=== PATIENT | female | born 1930 | race Two or more races ===

== ENCOUNTER 2016-10-07 22:51 | Inpatient (IN) | payer MEDICARE, BC ==
[~2016-10-07] VITALS: Ht 167.6 cm; Wt 77.6 kg
[~2016-10-07 22:51] MED LIST: COQ-10100 M1 PO; DYAZIDE 37.5-21 EACH PO; MULTI-VITAMIN1 EACH PO; OMEGA-31000 M1 PO; TOPROL XL25 MG ORAL; TURMERIC500 MG PO; VIT BCOMPLEX PO
[2016-10-07 23:09] VITALS: BP 151/68
[2016-10-07 23:40] LABS: BASOPHILS % (AUTO) 0.9 % (0.0-2.0); EOSINOPHILS % (AUTO) 1.4 % (0.0-3.0); LYMPHOCYTES % (AUTO) 34.4 % (20.0-45.0); MEAN CORPUSCULAR HEMOGLOBIN 30.4 PG (27.0-31.0); MEAN CORPUSCULAR HGB CONC 32.8 G/DL (32.0-36.0); MEAN CORPUSCULAR VOLUME 93 FL (80-99); MEAN PLATELET VOLUME 8.3 FL (6.5-10.1); MONOCYTES % (AUTO) 7.5 % (1.0-10.0); NEUTROPHILS % (AUTO) 55.8 % (45.0-75.0); PLATELET COUNT 221 K/UL (150-450); RED BLOOD COUNT 4.19 M/UL (4.20-5.40); RED CELL DISTRIBUTION WIDTH 12.8 % (11.6-14.8); WHITE BLOOD COUNT 8.3 K/UL (4.8-10.8)
[2016-10-08] VITALS (8 sets, daily range): BP systolic 123–153; BP diastolic 57–75
[2016-10-08 00:02] LABS: TROPONIN I < 0.30 ng/mL (<=0.30)
[2016-10-08 00:02] LABS: APPEARANCE,URINE CLEAR; KETONES,URINE NEGATIVE (NEGATIVE); LEUKOCYTE ESTERASE ,URINE 3+ (NEGATIVE); NITRITE,URINE NEGATIVE (NEGATIVE); PH,URINE 7 (4.5-8.0); PROTEIN,URINE 1+ (NEGATIVE); UROBILINOGEN,URINE NORMAL MG/DL (0.0-1.0)
[2016-10-08 00:05] LABS: ALANINE AMINOTRANSFERASE 22 U/L (3-33); ALBUMIN/GLOBULIN RATIO 1.4 (1.0-2.7); ANION GAP 12 (5-15); ASPARTATE AMINO TRANSFERASE 27 U/L (5-40); CALCIUM 8.9 mg/dL (8.6-10.2); CARBON DIOXIDE 27 mEQ/L (20-30); CHLORIDE 97 mEQ/L (98-107); HEMOLYSIS 58; POTASSIUM 3.6 mEQ/L (3.4-4.9); SODIUM 136 mEQ/L (135-145); TOTAL PROTEIN 6.2 g/dL (6.6-8.7)
[2016-10-08 00:16] LABS: CKMB < 1.5 ng/mL (< 3.8)
[2016-10-08 00:36] LABS: BACTERIA,URINE FEW /HPF; SQUAMOUS EPITHELIAL CELL,UR MODERATE /LPF (NONE/OCC)
[2016-10-08 00:43] LABS: PROTHROMBIN TIME 10.4 SEC (9.30-11.50)
--- NOTE | 2016-10-08 01:25 | Emergency Room Report ---
History of Present Illness General Chief Complaint: Generalized Weakness Source: Patient, EMS Present Illness HPI Is an 86-year-old female with a history of CAD with AICD. She present with chief complaint of syncope. She was at home sitting down. Her lead recreation assistant was stressing the wound on her hand. Patient said that she felt dizzy and lightheaded. Her lead recreation assistant said that she became pale and diaphoretic. She had a syncopal episode for a few seconds. Patient denies any palpitation. Said that she felt hot. EMS said blood pressure was in the 80s. They gave her IV fluid. Patient felt better now. Slight nausea. No chest pain. No other complaint. Allergies: Coded Allergies: NO KNOWN ALLERGIES (Unverified Allergy, Unknown, 10/07/16) Patient History Past Medical History: see triage record, old chart reviewed, CAD Past Surgical History: other Pertinent Family History: none Social History: Denies: smoking Last Menstrual Period: ukn Now: No Immunizations: other Reviewed Nursing Documentation: PMH: Agreed, PSxH: Agreed Nursing Documentation-PMH Past Medical History: No History, Except For Hx Cardiac Problems: Yes - Pacemaker Hx Hypertension: Yes Hx Cancer: No Hx Gastrointestinal Problems: No Hx Neurological Problems: No Review of Systems Eye: Denies: blurred vision, eye pain ENT: Denies: ear pain, nose congestion, throat swelling Respiratory: Denies: cough, shortness of breath Cardiovascular: Denies: chest pain, palpitations Gastrointestinal: Denies: abdominal pain, diarrhea, nausea, vomiting Musculoskeletal: Denies: back pain, joint pain Skin: Denies: rash Neurological: Denies: headache, numbness Endocrine: Denies: increased thirst, increased urine Hematologic/Lymphatic: Denies: easy bruising All Other Systems: negative except mentioned in HPI Physical Exam Vital Signs Date Time Temp Pulse Resp B/P Pulse Ox O2 Delivery O2 Flow Rate FiO2 10/07/16 22:42 98.2 69 20 138/84 96 Room Air vitals normal Sp02 EP Interpretation: reviewed, normal General Appearance: well appearing, no apparent distress, alert Head: normocephalic, atraumatic Eyes: bilateral eye EOMI, bilateral eye PERRL ENT: hearing grossly normal, normal pharynx Neck: full range of motion, supple, no meningismus Respiratory: chest non-tender, lungs clear, normal breath sounds Cardiovascular #1: regular rate, rhythm, no murmur Gastrointestinal: normal bowel sounds, non tender, no mass, no organomegaly, no bruit, non-distended Musculoskeletal: back normal, gait/station normal, normal range of motion Psychiatric: mood/affect normal Skin: warm/dry Medical Decision Making Diagnostic Impression: Primary Impression: Syncope Qualified Codes: R55 - Syncope and collapse ER Course Patient presents with syncope. Concerning for TIA/CVA. Concerning for arrhythmia. Patient is asymptomatic now. We'll admit for further workup. Lab Results Impression labs unremarkable EKG Diagnostic Results EKG Time: 01:46 Rate: normal Rhythm: NSR, other - Paced ST Segments: no acute changes Rhythm Strip Diag. Results Rhythm Strip Time: 01:47 EP Interpretation: yes Rate: 60 Rhythm: NSR, no PVC's, no ectopy, other - Paced Chest X-Ray Diagnostic Results Chest X-Ray Diagnostic Results : Chest X-Ray Ordered: Yes # of Views/Limited/Complete: 1 View Indication: Shortness of Breath EP Interpretation: Yes Interpretation: no consolidation, no effusion, no pneumothorax, no acute cardiopulmonary disease Impression: No acute disease Interpreting ER Provider: Electronically signed by Amari Medrano MD Last Vital Signs Date Time Temp Pulse Resp B/P Pulse Ox O2 Delivery O2 Flow Rate FiO2 10/07/16 23:09 98.2 60 23 151/68 99 Room Air Status: improved Disposition: ADMITTED INPATIENT Condition: Serious Referrals: NON PHYSICIAN (PCP) AMARI MEDRANO M.D. Oct 08, 2016 01:25
[2016-10-08] MEDS ORDERED: COREG3.125 MG ORAL (01:31)
[2016-10-08] MEDS ORDERED: ASPIR 8181 MG ORAL (01:31)
[2016-10-08] MEDS ORDERED: AMIODARONE HCL400 M1 ORAL (01:31)
[2016-10-08] MEDS ORDERED: CALCITONIN-SAL3.7 ML NS ×2 (01:31→03:46)
[2016-10-08] MEDS ORDERED: ALPHA LIPOIC A300 MG PO (03:46)
[2016-10-08] MEDS ORDERED: VIRT-VITE PLUS T5 MG PO (03:46)
[2016-10-08] MEDS ORDERED: GREEN TEA EXTR250 MG PO (03:46)
[2016-10-08] MEDS ORDERED: CELEBREX200 MG ORAL (03:46)
[2016-10-08] MEDS ORDERED: COQ-10100 M1 PO (03:46)
[2016-10-08] MEDS ORDERED: MELATONIN 10 M1 EACH ORAL (03:46)
[2016-10-08] MEDS ORDERED: MAG-OX 400400 MG ORAL (03:46)
[2016-10-08] MEDS ORDERED: SIMVASTATIN20 MG ORAL (03:46)
[2016-10-08] MEDS ORDERED: TURMERIC 450-51 EACH PO (03:46)
[2016-10-08] MEDS ORDERED: OMEGA 3 1,0001 EACH PO (03:46)
[2016-10-08] MEDS ORDERED: CENTRUM SILVER1 EAC4 PO (03:46)
[2016-10-08] MEDS ORDERED: THIAMINE HCL100 MG ORAL (03:46)
[2016-10-08] MEDS ORDERED: CALCIUM600 M1 PO (03:46)
[2016-10-08] MEDS ORDERED: VITAMIN D400 INTLU ORAL (03:46)
[2016-10-08] MEDS ORDERED: PROLIA60 MG/1 ML SUBQ (03:47)
[2016-10-08] MEDS: Amiodarone 200mg tab ORAL SCH ×2 (09:00→20:46)
[2016-10-08] MEDS: Triamterene/Hctz 37.5/25 cap ORAL SCH (09:00)
[2016-10-08] MEDS: Aspirin Baby 81mg NG SCH (09:01)
--- NOTE | 2016-10-08 10:48 | Diagnostic Imaging Report ---
Indications: Shortness of breath Technique: Portable AP chest Findings: Comparison: None Suboptimal inspiration, patient rotation limit evaluation. Cardiac silhouette enlarged. Pulmonary vasculature within normal limits. Linear densities in both lung bases. Suggestion of small calcified nodule right lung base. No obvious pleural abnormalities. Aortic arch calcified. Left chest wall pacemaker. Chronic appearing deformity proximal right humerus. IMPRESSION: Bibasal subsegmental atelectasis versus scarring Cardiomegaly with pacemaker Aortosclerosis Probable old, healed fracture proximal right humerus Upright PA and lateral chest radiographs with better inspiratory effort and optimal technique recommended for more complete evaluation.
--- NOTE | 2016-10-08 17:39 | Cardiac Electrophysiology PN ---
Subjective Subjective [id number]. DW Son and Dr Lane. ICD interrogation pending today Objective Last 24 Hour Vital Signs Date Time Temp Pulse Resp B/P Pulse Ox O2 Delivery O2 Flow Rate FiO2 10/08/16 15:43 60 10/08/16 15:41 97.2 81 18 128/58 97 Room Air 10/08/16 11:48 97.0 60 18 124/60 98 Room Air 10/08/16 11:26 60 10/08/16 09:10 60 10/08/16 09:05 62 10/08/16 09:00 60 10/08/16 09:00 60 129/63 10/08/16 08:13 97.2 60 18 129/63 99 Room Air 10/08/16 07:28 60 10/08/16 04:04 98.3 68 17 130/75 94 Room Air 10/08/16 04:00 60 10/08/16 02:28 97.0 60 18 139/66 98 Room Air 10/08/16 02:11 98.2 60 16 132/57 99 Room Air 10/08/16 02:03 98.2 60 16 132/57 99 Room Air 10/07/16 23:09 98.2 60 23 151/68 99 Room Air 10/07/16 22:42 98.2 69 20 138/84 96 Room Air Intake and Output 10/07/16 10/08/16 19:00 07:00 Intake Total 1000 ml Balance 1000 ml IV Total 1000 ml # Voids 1 Laboratory Tests Test 10/07/16 23:25 10/07/16 23:53 White Blood Count 8.3 K/UL (4.8-10.8) Red Blood Count 4.19 M/UL (4.20-5.40) L Hemoglobin 12.7 G/DL (12.0-16.0) Hematocrit 38.9 % (37.0-47.0) Mean Corpuscular Volume 93 FL (80-99) Mean Corpuscular Hemoglobin 30.4 PG (27.0-31.0) Mean Corpuscular Hemoglobin Concent 32.8 G/DL (32.0-36.0) Red Cell Distribution Width 12.8 % (11.6-14.8) Platelet Count 221 K/UL (150-450) Mean Platelet Volume 8.3 FL (6.5-10.1) Neutrophils (%) (Auto) 55.8 % (45.0-75.0) Lymphocytes (%) (Auto) 34.4 % (20.0-45.0) Monocytes (%) (Auto) 7.5 % (1.0-10.0) Eosinophils (%) (Auto) 1.4 % (0.0-3.0) Basophils (%) (Auto) 0.9 % (0.0-2.0) Prothrombin Time 10.4 SEC (9.30-11.50) Prothromb Time International Ratio 1.0 (0.9-1.1) Activated Partial Thromboplast Time 25 SEC (23-33) Sodium Level 136 mEQ/L (135-145) Potassium Level 3.6 mEQ/L (3.4-4.9) Chloride Level 97 mEQ/L (98-107) L Carbon Dioxide Level 27 mEQ/L (20-30) Anion Gap 12 (5-15) Blood Urea Nitrogen 18 mg/dL (7-23) Creatinine 1.0 mg/dL (0.5-0.9) H Estimat Glomerular Filtration Rate mL/min (>60) Glucose Level 112 mg/dL (74-106) H Calcium Level 8.9 mg/dL (8.6-10.2) Total Bilirubin < 0.2 mg/dL (0.0-1.2) Aspartate Amino Transf (AST/SGOT) 27 U/L (5-40) Alanine Aminotransferase (ALT/SGPT) 22 U/L (3-33) Alkaline Phosphatase 48 U/L (35-104) Total Creatine Kinase 63 U/L (26-140) Creatine Kinase MB < 1.5 ng/mL (< 3.8) Troponin I < 0.30 ng/mL (<=0.30) Pro-B-Type Natriuretic Peptide 141 pg/mL (0-450) Total Protein 6.2 g/dL (6.6-8.7) L Albumin 3.7 g/dL (3.5-5.2) Globulin 2.5 g/dL Albumin/Globulin Ratio 1.4 (1.0-2.7) Urine Color Yellow Urine Appearance Clear Urine pH 7 (4.5-8.0) Urine Specific [place] 1.010 (1.005-1.035) Urine Protein 1+ (NEGATIVE) H Urine Glucose (UA) Negative (NEGATIVE) Urine Ketones Negative (NEGATIVE) Urine Occult Blood Negative (NEGATIVE) Urine Nitrite Negative (NEGATIVE) Urine Bilirubin Negative (NEGATIVE) Urine Urobilinogen Normal MG/DL (0.0-1.0) Urine Leukocyte Esterase 3+ (NEGATIVE) H Urine RBC 2-4 /HPF (0 - 2) H Urine WBC 5-10 /HPF (0 - 2) H Urine Squamous Epithelial Cells Moderate /LPF (NONE/OCC) H Urine Bacteria Few /HPF (NONE) Urine Hyaline Casts 2-4 /LPF (NONE) H Urine Coarse Granular Casts 2-4 /LPF (NONE) H CECILIO SANDOVAL Oct 08, 2016 17:39
--- NOTE | 2016-10-08 18:11 | History and Physical ---
Rhianna Rincon N.P. 10/08/16 1811: History of Present Illness General Date patient seen: Oct 08, 2016 Time patient seen: 17:56 Reason for Hospitalization: syncope Present Illness HPI 86 y/o with a PMH of CAD, and previous history of syncopal episodes s/p Biotronik AICD placement in 2013 who presented to ED after having a syncopal episode at home last night. She states that she was sitting down when she started feeling dizzy and lightheaded. Per her director of quality, the patient became pale and diaphoretic and lost consciousness for a few seconds. Denies head trauma. Denies chest pain, SOB, palpitations. Upon arrival of EMS, patient had BP with systolic 80s and was given IVF. Denies f/c, d/c, n/v. Allergies: Coded Allergies: NO KNOWN ALLERGIES (Unverified Allergy, Unknown, 10/07/16) Medication History Scheduled Alpha Lipoic Acid (Alpha Lipoic Acid), 600 MG PO DAILY, (Reported) Amiodarone Hcl* (Amiodarone Hcl*), 100 MG ORAL EVERY 12 HOURS, (Reported) Aspirin* (Aspir 81*), 81 MG ORAL DAILY, (Reported) Calcitonin,[place],Synthetic (Calcitonin-[place]), 3.7 ML NS DAILY, (Reported) Calcium Carbonate (Calcium), 600 MG PO DAILY, (Reported) Carvedilol (Coreg), 3.125 MG ORAL EVERY 12 HOURS, (Reported) Denosumab (Prolia), 60 MG SUBQ EVERY 6 MONTHS, (Reported) Folic Acid/B Complex & C No.17 (Virt-Anselmo Plus Tablet), 5 MG PO DAILY, (Reported ) Green Tea [place] Extract (Green Tea Extract), 500 MG PO DAILY, (Reported) Magnesium Oxide (Magnesium Oxide), 400 MG ORAL DAILY, (Reported) Mu-Vits-Min Th/Lycopene/Lutein (Centrum Silver Tablet), 1 EACH PO DAILY, ( Reported) Roscoe-3 Fatty Acids/Fish Oil (Roscoe 3 1,000 Mg Softgel), 1 EACH PO DAILY, ( Reported) Simvastatin (Zocor), 20 MG ORAL BEDTIME, (Reported) Thiamine Hcl (Vitamin B1*), 100 MG ORAL DAILY, (Reported) Triamterene/Hydrochlorothiazid (Dyazide 37.5-25 Capsule), 1 EACH PO DAILY, ( Reported) Turmeric/Turmeric Root Extract (Turmeric 450-50 Mg Capsule), 1 EACH PO DAILY, ( Reported) Ubidecarenone (Coq-10), 300 MG PO DAILY, (Reported) Vitamin D (Vitamin D3), 2,000 UNITS ORAL DAILY, (Reported) Scheduled PRN Celecoxib* (Celebrex*), 200 MG ORAL DAILY PRN for For Pain, (Reported) Melatonin (Melatonin 10 Mg Tablet), 1 TAB ORAL BEDTIME PRN for Insomnia, ( Reported) Discontinued Medications Calcitonin,[place],Synthetic (Calcitonin-[place]), 3.7 ML NS, (Reported) Discontinued Reason: Medication dose changed Metoprolol Succinate* (Toprol Xl*), 25 MG ORAL DAILY, (Reported) Discontinued Reason: Pt stopped taking med Multivitamin (Multi-Vitamin Daily), 1 EACH PO DAILY, (Reported) Discontinued Reason: Pt stopped taking med Roscoe-3 Fatty Acids (Roscoe-3), 1,000 MG PO DAILY, (Reported) Discontinued Reason: Pt stopped taking med Turmeric Root Extract (Turmeric), 500 MG PO DAILY, (Reported) Discontinued Reason: Medication dose changed Ubidecarenone (Coq-10), 100 MG PO DAILY, (Reported) Discontinued Reason: Medication dose changed [Vit Bcomplex], 1 TAB PO DAILY, (Reported) Discontinued Reason: Pt stopped taking med Patient History History Provided By: Patient, Family Member, Friend, Medical Record Healthcare decision maker Resuscitation status Full Code Advanced Directive on File Review of Systems Constitutional: Denies: chills, fever, malaise, no symptoms, other, see HPI, sweats, weakness Eye: Denies: acuity changes, blurred vision, discharge, double vision, eye pain , no symptoms, nose congestion, nose pain, other, see HPI, tearing ENT: Denies: ear discharge, ear pain, hearing loss, mouth pain, nasal discharge , no symptoms, nose congestion, nose pain, other, see HPI, throat pain, throat swelling Respiratory: Denies: LARA, cough, no symptoms, orthopnea, other, see HPI, shortness of breath, sputum, stridor, wheezing Cardiovascular: Reports: syncope, Denies: PND, chest pain, edema, no symptoms, other, palpitations, see HPI Gastrointestinal: Denies: abdominal pain, constipation, diarrhea, hematemesis, melena, nausea, no symptoms, other, see HPI, vomiting Genitourinary: Denies: discharge, dysuria, frequency, hematuria, incontinence, no symptoms, other, pain, retention, see HPI, urgency, vag bleed/dc Musculoskeletal: Denies: back pain, gout, joint pain, joint swelling, muscle pain, muscle stiffness, no symptoms, other, see HPI Skin: Denies: change in color, change in hair/nails, dryness, lesions, no symptoms, other, rash, see HPI Psychiatric: Denies: HI, SI, anxiety, depressed feelings, emotional problems, hallucinations, no symptoms, other, prior hx, see HPI Neurological: Denies: dizziness, focal weakness, headache, no symptoms, numbness, other, paresthesia, see HPI, seizure, syncope, tingling, tremors Endocrine: Denies: excessive sweating, flushing, increased thirst, increased urine, intolerance to temperature, no symptoms, other, see HPI, unexplained weight loss Physical Exam General Appearance: no apparent distress, alert HEENT: normocephalic, atraumatic, PERRL Neck: non-tender, normal alignment, supple Respiratory/Chest: chest wall non-tender, lungs clear, normal breath sounds, no respiratory distress Cardiovascular/Chest: normal rate, regular rhythm, pacemaker/AICD Abdomen: normal bowel sounds, non tender, soft Extremities: normal range of motion, non-tender Skin Exam: normal pigmentation, warm/dry Neurologic: site director II-XII grossly normal, no motor/sensory deficits Last 24 Hour Vital Signs Date Time Temp Pulse Resp B/P Pulse Ox O2 Delivery O2 Flow Rate FiO2 10/08/16 15:43 60 10/08/16 15:41 97.2 81 18 128/58 97 Room Air 10/08/16 11:48 97.0 60 18 124/60 98 Room Air 10/08/16 11:26 60 10/08/16 09:10 60 10/08/16 09:05 62 10/08/16 09:00 60 10/08/16 09:00 60 129/63 10/08/16 08:13 97.2 60 18 129/63 99 Room Air 10/08/16 07:28 60 10/08/16 04:04 98.3 68 17 130/75 94 Room Air 10/08/16 04:00 60 10/08/16 02:28 97.0 60 18 139/66 98 Room Air 10/08/16 02:11 98.2 60 16 132/57 99 Room Air 10/08/16 02:03 98.2 60 16 132/57 99 Room Air 10/07/16 23:09 98.2 60 23 151/68 99 Room Air 10/07/16 22:42 98.2 69 20 138/84 96 Room Air Intake and Output 10/07/16 10/08/16 19:00 07:00 Intake Total 1000 ml Balance 1000 ml IV Total 1000 ml # Voids 1 Laboratory Tests Test 10/07/16 23:25 10/07/16 23:53 White Blood Count 8.3 K/UL (4.8-10.8) Red Blood Count 4.19 M/UL (4.20-5.40) L Hemoglobin 12.7 G/DL (12.0-16.0) Hematocrit 38.9 % (37.0-47.0) Mean Corpuscular Volume 93 FL (80-99) Mean Corpuscular Hemoglobin 30.4 PG (27.0-31.0) Mean Corpuscular Hemoglobin Concent 32.8 G/DL (32.0-36.0) Red Cell Distribution Width 12.8 % (11.6-14.8) Platelet Count 221 K/UL (150-450) Mean Platelet Volume 8.3 FL (6.5-10.1) Neutrophils (%) (Auto) 55.8 % (45.0-75.0) Lymphocytes (%) (Auto) 34.4 % (20.0-45.0) Monocytes (%) (Auto) 7.5 % (1.0-10.0) Eosinophils (%) (Auto) 1.4 % (0.0-3.0) Basophils (%) (Auto) 0.9 % (0.0-2.0) Prothrombin Time 10.4 SEC (9.30-11.50) Prothromb Time International Ratio 1.0 (0.9-1.1) Activated Partial Thromboplast Time 25 SEC (23-33) Sodium Level 136 mEQ/L (135-145) Potassium Level 3.6 mEQ/L (3.4-4.9) Chloride Level 97 mEQ/L (98-107) L Carbon Dioxide Level 27 mEQ/L (20-30) Anion Gap 12 (5-15) Blood Urea Nitrogen 18 mg/dL (7-23) Creatinine 1.0 mg/dL (0.5-0.9) H Estimat Glomerular Filtration Rate mL/min (>60) Glucose Level 112 mg/dL (74-106) H Calcium Level 8.9 mg/dL (8.6-10.2) Total Bilirubin < 0.2 mg/dL (0.0-1.2) Aspartate Amino Transf (AST/SGOT) 27 U/L (5-40) Alanine Aminotransferase (ALT/SGPT) 22 U/L (3-33) Alkaline Phosphatase 48 U/L (35-104) Total Creatine Kinase 63 U/L (26-140) Creatine Kinase MB < 1.5 ng/mL (< 3.8) Troponin I < 0.30 ng/mL (<=0.30) Pro-B-Type Natriuretic Peptide 141 pg/mL (0-450) Total Protein 6.2 g/dL (6.6-8.7) L Albumin 3.7 g/dL (3.5-5.2) Globulin 2.5 g/dL Albumin/Globulin Ratio 1.4 (1.0-2.7) Urine Color Yellow Urine Appearance Clear Urine pH 7 (4.5-8.0) Urine Specific [place] 1.010 (1.005-1.035) Urine Protein 1+ (NEGATIVE) H Urine Glucose (UA) Negative (NEGATIVE) Urine Ketones Negative (NEGATIVE) Urine Occult Blood Negative (NEGATIVE) Urine Nitrite Negative (NEGATIVE) Urine Bilirubin Negative (NEGATIVE) Urine Urobilinogen Normal MG/DL (0.0-1.0) Urine Leukocyte Esterase 3+ (NEGATIVE) H Urine RBC 2-4 /HPF (0 - 2) H Urine WBC 5-10 /HPF (0 - 2) H Urine Squamous Epithelial Cells Moderate /LPF (NONE/OCC) H Urine Bacteria Few /HPF (NONE) Urine Hyaline Casts 2-4 /LPF (NONE) H Urine Coarse Granular Casts 2-4 /LPF (NONE) H Height (Feet): 5 Height (Inches): 6.00 Weight (Pounds): 171 Medications Current Medications Medications (Trade) Dose Ordered Sig/Luke Route PRN Reason Start Time Stop Time Status Last Admin Dose Admin Acetaminophen (Tylenol) 650 mg Q6H PRN ORAL Pain 1-3/Temp > 100.5 10/08/16 06:45 11/07/16 06:44 Amiodarone HCl (Cordarone) 100 mg EVERY 12 HOURS ORAL 10/08/16 09:00 11/07/16 08:59 10/08/16 09:00 Artificial Tears (Akwa-Tears) 1 drop ONCE ONCE BOTH EYES 10/08/16 19:00 10/08/16 19:01 Aspirin (ASA) 81 mg DAILY NG 10/08/16 09:00 11/07/16 08:59 10/08/16 09:01 Carvedilol (Coreg) 3.125 mg EVERY 12 HOURS ORAL 10/08/16 09:00 11/07/16 08:59 10/08/16 09:00 Ondansetron HCl (Zofran) 4 mg Q4H PRN IVP Nausea & Vomiting 10/08/16 06:45 11/07/16 06:44 Triamterene/HCTZ (Dyazide) 1 cap DAILY ORAL 10/08/16 09:00 11/07/16 08:59 10/08/16 09:00 Assessment/Plan Problem List: (1) Syncope Assessment & Plan: Patient will be admitted to med-surg. CXR was reviewed with no acute disease. ECHO was also reviewed, which showed an LVEF of 45%. BLE was negative for DVT. EKG showed NSR, paced rhythm. Patient had not had any further syncopal episodes in the hospital stay. Patient was seen by cardiology, Dr. Nunn and her AICD will be interrogated tonight. Case was discussed with family and Dr. Hernández. Family agrees to plan of care. ICD Codes: R55 - Syncope and collapse SNOMED: 542397647 Qualifiers: Qualified Codes: R55 - Syncope and collapse (2) HTN (hypertension) Assessment & Plan: continue dyazide and coreg ICD Codes: I10 - Essential (primary) hypertension SNOMED: 37939962 (3) A-fib Assessment & Plan: continue amiodarone and ASA 81mg ICD Codes: I48.91 - Unspecified atrial fibrillation SNOMED: 53396598 Status: doing well JACI GILL 10/09/16 0819: History of Present Illness General Reason for Hospitalization: syncope Present Illness Allergies: Coded Allergies: NO KNOWN ALLERGIES (Unverified Allergy, Unknown, 10/07/16) Medication History Scheduled Alpha Lipoic Acid (Alpha Lipoic Acid), 600 MG PO DAILY, (Reported) Amiodarone Hcl* (Amiodarone Hcl*), 100 MG ORAL EVERY 12 HOURS, (Reported) Aspirin* (Aspir 81*), 81 MG ORAL DAILY, (Reported) Calcitonin,[place],Synthetic (Calcitonin-[place]), 3.7 ML NS DAILY, (Reported) Calcium Carbonate (Calcium), 600 MG PO DAILY, (Reported) Carvedilol (Coreg), 3.125 MG ORAL EVERY 12 HOURS, (Reported) Denosumab (Prolia), 60 MG SUBQ EVERY 6 MONTHS, (Reported) Folic Acid/B Complex & C No.17 (Virt-Anselmo Plus Tablet), 5 MG PO DAILY, (Reported ) Green Tea [place] Extract (Green Tea Extract), 500 MG PO DAILY, (Reported) Magnesium Oxide (Magnesium Oxide), 400 MG ORAL DAILY, (Reported) Mu-Vits-Min Th/Lycopene/Lutein (Centrum Silver Tablet), 1 EACH PO DAILY, ( Reported) Roscoe-3 Fatty Acids/Fish Oil ([place] 3 1,000 Mg Softgel), 1 EACH PO DAILY, ( Reported) Simvastatin (Zocor), 20 MG ORAL BEDTIME, (Reported) Thiamine Hcl (Vitamin B1*), 100 MG ORAL DAILY, (Reported) Triamterene/Hydrochlorothiazid (Dyazide 37.5-25 Capsule), 1 EACH PO DAILY, ( Reported) Turmeric/Turmeric Root Extract (Turmeric 450-50 Mg Capsule), 1 EACH PO DAILY, ( Reported) Ubidecarenone (Coq-10), 300 MG PO DAILY, (Reported) Vitamin D (Vitamin D3), 2,000 UNITS ORAL DAILY, (Reported) Scheduled PRN Celecoxib* (Celebrex*), 200 MG ORAL DAILY PRN for For Pain, (Reported) Melatonin (Melatonin 10 Mg Tablet), 1 TAB ORAL BEDTIME PRN for Insomnia, ( Reported) Discontinued Medications Calcitonin,[place],Synthetic (Calcitonin-[place]), 3.7 ML NS, (Reported) Discontinued Reason: Medication dose changed Metoprolol Succinate* (Toprol Xl*), 25 MG ORAL DAILY, (Reported) Discontinued Reason: Pt stopped taking med Multivitamin (Multi-Vitamin Daily), 1 EACH PO DAILY, (Reported) Discontinued Reason: Pt stopped taking med [place]-3 Fatty Acids ([place]-3), 1,000 MG PO DAILY, (Reported) Discontinued Reason: Pt stopped taking med Turmeric Root Extract (Turmeric), 500 MG PO DAILY, (Reported) Discontinued Reason: Medication dose changed Ubidecarenone (Coq-10), 100 MG PO DAILY, (Reported) Discontinued Reason: Medication dose changed [Vit Bcomplex], 1 TAB PO DAILY, (Reported) Discontinued Reason: Pt stopped taking med Assessment/Plan Assessment/Plan The patient was seen and examined at bedside and all new and available data was reviewed in the patients chart. I agree with the above findings, impression, and plan. F/U Labs F/U cultures Discuss with cardiology -PT mobility F/U with cardiology Recommendations (Patient was seen earlier today. Signature timestamp does not reflect patient encounter time) Rhianna Urias MD N.PTristin Oct 08, 2016 18:11 JACI GILL Oct 09, 2016 08:19
[2016-10-08] MEDS ORDERED: Artificial Tears 1.4% Op Soln BOTH EYES ONE (19:00)
[2016-10-08 20:46] LABS: TROPONIN I < 0.30 ng/mL (<=0.30)
--- NOTE | 2016-10-08 22:01 | Consultation ---
DATE OF CONSULTATION: CARDIOLOGY CONSULTATION CONSULTING PHYSICIAN: Mg Leyva M.D. REFERRING PHYSICIAN: Alin Lane M.D. REASON FOR CONSULTATION: Evaluation of the patient's defibrillator in a patient with syncope. HISTORY OF PRESENT ILLNESS: The patient is an 86-year-old lady with history of hypertension, cardiomyopathy, and coronary artery disease with history of Biotronik defibrillator implantation [place] [address] Osmani Conte at [facility]. The patient was brought to the emergency room after syncopal episodes. The patient felt dizzy and lightheaded and the design teacher noticed that she became pale and diaphoretic and a syncopal episode of few seconds. By paramedics, the blood pressure was in the 80s and gave her intravenous fluids. At the time of my evaluation, the patient is completely asymptomatic and wants to go home. PAST MEDICAL HISTORY: 1. Hypertension. 2. Congestive heart failure. 3. Coronary artery disease. 4. History of defibrillator implantation of the Biotronik device. 5. History of lead revision about two months after ICD implant. SOCIAL HISTORY: She lives at home with a caregiver. Does not smoke or drink alcohol. FAMILY HISTORY: Noncontributory. REVIEW OF SYSTEMS: Thoroughly performed and was negative other than what was mentioned in the history of present illness. PHYSICAL EXAMINATION: VITAL SIGNS: Blood pressure is 128/58, pulse is 70, respirations 18, and she is afebrile. HEAD AND NECK: Showed no JVD. LUNGS: Clear. CARDIOVASCULAR: Shows regular S1 and S2 with no gallop or murmur. ABDOMEN: Soft. EXTREMITIES: No pitting edema. The defibrillator is in the left subclavian area. LABORATORY DATA: Labs showed white count of 8.2, hemoglobin 12.7, hematocrit 38.9, and platelets of 221,000. Sodium 136, potassium 3.6, BUN of 18, creatinine 1, and glucose of 112. First troponin is negative. ASSESSMENT AND PLAN: 1. Syncopal episodes. The etiology is not clear at this time. We will completely rule out myocardial infarction protocol. We will get an echocardiogram to evaluate for ejection fraction and wall motion abnormality. We will also interrogate the defibrillator to see whether the patient episodes. 2. Status post Biotronik defibrillator. We will interrogate defibrillator for further evaluation. 3. Cardiomyopathy with ejection fraction of around 45%. The patient is currently euvolemic, on Coreg 3.125 mg b.i.d. and Dyazide daily. We will start aspirin. 4. Atrial tachyarrhythmia, on amiodarone 100 mg b.i.d. By interrogating the defibrillator, we will see the burden of cardiac arrhythmia. Thank you very much Dr. Lane for allowing me to participate in the care of this patient. Please do not hesitate to contact me for any questions regarding my evaluation. Mg Leyva M.D. DR: BENITEZ JOB#: [id number] CC:
[2016-10-09 03:49] VITALS: BP 126/64
[2016-10-09 08:00] VITALS: BP 125/78
[2016-10-09] MEDS: Aspirin Baby 81mg NG SCH (08:41)
[2016-10-09] MEDS: Amiodarone 200mg tab ORAL SCH (08:41)
[2016-10-09] MEDS: Triamterene/Hctz 37.5/25 cap ORAL SCH (08:41)
[2016-10-09 08:42] VITALS: BP 125/78
--- NOTE | 2016-10-09 17:33 | Discharge Summary ---
Discharge Summary Hospital Course Date of Admission Oct 08, 2016 at 00:55 Date of Discharge Oct 09, 2016 at 10:17 Admitting Diagnosis syncope HPI Darlyn Mcmanus is a 86 year old female who was admitted on Oct 08, 2016 at 00: 55 for Syncope Consultations Cardiology Procedures AICD interrogation Hospital Course 86 y/o female that presented to the hospital after a syncopal episode. Patient had further diagnostic tests which were negative for bilateral lower extremity DVTs and ECHO showed an EF of 45-50%. Cardiology was consulted and [facility] was [facility]. No arrhythmias were noted. No further syncopal episodes were noted. Patient likely had a hypotensive event that caused her syncope. Blood pressure normalized in hospital and patient denied any cp, sob, or palpitations. Patient was stable prior to discharge. Discharge Medications Continued Medications: Alpha Lipoic Acid (Alpha Lipoic Acid) 300 Mg Capsule 600 MG PO DAILY, CAP Amiodarone Hcl* (Amiodarone Hcl*) 400 Mg Tablet 100 MG ORAL EVERY 12 HOURS, TAB Aspirin* (Aspir 81*) 81 Mg Tablet.dr 81 MG ORAL DAILY, TAB Calcitonin,[place],Synthetic (Calcitonin-[place]) 3.7 Ml [place].pump 3.7 ML NS DAILY Calcium Carbonate (Calcium) 600 Mg Tablet 600 MG PO DAILY, TAB Carvedilol (Coreg) 3.125 Mg Tablet 3.125 MG ORAL EVERY 12 HOURS, TAB Celecoxib* (Celebrex*) 200 Mg Capsule 200 MG ORAL DAILY PRN for For Pain, CAP Denosumab (Prolia) 60 Mg/1 Ml Syringe 60 MG SUBQ EVERY 6 MONTHS, EA Folic Acid/B Complex & C No.17 (Virt-[place] Plus Tablet) 5 Mg Tablet 5 MG PO DAILY, TAB Green Tea [place] Extract (Green Tea Extract) 250 Mg Capsule 500 MG PO DAILY, CAP Magnesium Oxide (Magnesium Oxide) 400 Mg Tablet 400 MG ORAL DAILY, #30 TAB 0 Refills Melatonin (Melatonin 10 Mg Tablet) 1 Each Tab.mphase 1 TAB ORAL BEDTIME PRN for Insomnia, TAB Mu-Vits-Min Th/Lycopene/Lutein (Centrum Silver Tablet) 1 Each Tablet 1 EACH PO DAILY, TAB [place]-3 Fatty Acids/Fish Oil ([place] 3 1,000 Mg Softgel) 1 Each Capsule 1 EACH PO DAILY, CAP Simvastatin (Zocor) 20 Mg Tablet 20 MG ORAL BEDTIME, TAB Thiamine Hcl (Vitamin B1*) 100 Mg Tablet 100 MG ORAL DAILY, TAB Triamterene/Hydrochlorothiazid (Dyazide 37.5-25 Capsule) 1 Each Capsule 1 EACH PO DAILY Turmeric/Turmeric Root Extract (Turmeric 450-50 Mg Capsule) 1 Each Capsule 1 EACH PO DAILY, CAP Ubidecarenone (Coq-10) 100 Mg Capsule 300 MG PO DAILY, CAP Vitamin D (Vitamin D3) 400 Unit Tablet 2000 UNITS ORAL DAILY, TAB Discharge Condition Upon Discharge: stable Discharge Disposition Patient was discharged to Home with Home Health() Discharge Diagnoses: (1) Syncope (2) A-fib (3) HTN (hypertension) (4) Chronic systolic CHF (congestive heart failure) Rhianna Rincon N.P. Oct 09, 2016 17:33
--- NOTE | 2016-10-13 13:18 | Cardiology Report ---
APPROVED REPORT EKG Measurement Heart [id number] Atrial paced rhythm Electronic pacemaker LAD LBBB Abnormal ECG
== END 2016-10-09 10:17 | disposition home or self-care (01) | DRG 309 ==
LOC: EDBD 22:51 → EMR 22:59 → 2E 10-08 00:55 → EDBEDREQ 10-08 01:14 → 2E 10-08 02:03
DX: I48.91 Unspecified atrial fibrillation (principal); I50.22 Chronic systolic (congestive) heart failure; I42.9 Cardiomyopathy, unspecified; I10 Essential (primary) hypertension; Z95.810 Presence of automatic (implantable) cardiac defibrillator; I25.10 Atherosclerotic heart disease of native coronary artery without angina pectoris; R55 Syncope and collapse
CPT/HCPCS: 36415; 71010; 80053; 81003; 82550; 82553; 83880; 84484; 85025; 85610; 85730; 93005; 93306; 93970